=== PATIENT | female | born 1995 | race Caucasian/White ===

== ENCOUNTER → 2019-11-20 17:36 | Outpatient (CLI) | payer BC, SELFPAY ==
[2019-11-20 18:05] LABS: Basophils # 0.1 K/mm3 (0-0.2); Basophils % 0.7 % (0.1-2.0); Eosinophils # 0.3 K/mm3 (0.0-0.4); Eosinophils % 3.2 % (0.1-12.0); Hematocrit 43.7 % (37.0-47.0); Hemoglobin 13.9 g/dL (12.2-16.2); Lymphocytes % 32.4 % (10-50); Mean Corpuscular HGB Conc 31.7 g/dL (31.8-35.4); Mean Corpuscular Volume 85.1 fl (81-99); Mean Platelet Volume 8.1 fl (7.4-10.4); Monocytes # 0.3 K/mm3 (0.1-1.0); Monocytes % 3.6 % (1.7-9.3); Neutrophils # 5.6 K/mm3 (1.8-7.8); Neutrophils % 60.1 % (37.0-80.0); Platelet Count 287 K/mm3 (142-424); Red Blood Count 5.13 M/mm3 (4.20-5.40); Red Cell Distribution Width 13.1 % (11.5-17.5); White Blood Count 9.3 K/mm3 (4.8-10.8)
[2019-11-20 18:24] LABS: Alanine Aminotransferase 8 U/L (12-78); Albumin Level 4.7 g/dl (3.5-5.0); Albumin/Globulin Ratio 1.6 (1.1-1.8); Alkaline Phosphatase 111 U/L (38-126); Anion Gap 13.2 mEq/L (5-15); Aspartate Amino Transferase 26 U/L (14-36); Bilirubin,Total 0.6 mg/dl (0.2-1.3); Blood Urea Nitrogen 12 mg/dl (7-17); Calcium 10.2 mg/dl (8.4-10.2); Carbon Dioxide 26 mmol/L (22.0-30.0); Chloride 106 mmol/L (98-107); Chol/HDL Ratio 5.5 (1-3.5); Cholesterol 204 mg/dl (140-200); Estimated Glomerular Filt Rate 68 ml/min (>60); GFR (African American) 82 ML/MIN (>60); Glucose 97 mg/dl (74-100); HDL Cholesterol 37 mg/dl (40-60); Potassium 4.2 mmoL/L (3.5-5.1); Sodium 141 mmol/L (136-145); Total Protein,Serum 7.7 g/dl (6.3-8.2); Triglycerides 327 mg/dl (30-150); VLDL Cholesterol 65 mg/dL (0-40)
[2019-11-20 18:36] LABS: Direct LDL Cholesterol 131.88 mg/dL (100-129)
[2019-11-20 18:41] LABS: 25-OH Vitamin D, Total 32.5 ng/mL (30-100)
[2019-11-20 18:42] LABS: T4 (Thyroxine) 7.3 ug/dl (5.53-11.0)
[2019-11-20 18:55] LABS: Thyroid Stimulating Hormone 1.57 uIU/mL (0.465-4.68)
== END ==
PROVIDERS: Visit Provider Nurse Practitioner Family
DX: Z00.00 Encounter for general adult medical examination without abnormal findings (principal); G44.89 Other headache syndrome
CPT/HCPCS: 80053; 80061; 82306; 84436; 84443; 85025

== ENCOUNTER → 2019-11-26 13:22 | Outpatient (CLI) | payer BC, SELFPAY ==
[2019-11-26 17:14] LABS: Hemoglobin A1C 5.1 % (4.0-6.0)
== END ==
PROVIDERS: Visit Provider Nurse Practitioner Family
DX: E78.2 Mixed hyperlipidemia (principal)
CPT/HCPCS: 83036

== ENCOUNTER → 2019-12-10 14:06 | Outpatient (CLI) | payer BC, SELFPAY ==
[2019-12-10 15:10] VITALS: PULSE 83; PULSE 88
--- NOTE | 2019-12-10 15:39 | MR_ITS ---
PROCEDURE: MR HEAD/BRAIN WO CON CLINICAL INDICATION: new onset of headaches HEADACHE AND IRRITABILITY. NO PRIOR. COMPARISON: No exams were available for comparison TECHNIQUE: Routine multiplanar multi echo sequences are performed without gadolinium enhancement. FINDINGS: No midline shift, mass effect, intracranial hemorrhage, or hydrocephalus. No evidence of acute infarction. The cerebellopontine angles, cerebellum and brainstem have an unremarkable appearance. The pituitary, optic chiasm, corpus callosum, and craniocervical junction have an unremarkable appearance. No mastoid effusion or sinus air-fluid level. IMPRESSION: Negative MRI of the brain without contrast. No acute intracranial findings. Dictated by: Jordon Howard MD 12/11/2019 10:17 Jordon Howard MD in [place] 12/11/2019 10:17
== END ==
PROVIDERS: PCP Emergency Medicine; Visit Provider Specialist
DX: R06.02 Shortness of breath (principal); R51.9 Headache, unspecified; Z87.09 Personal history of other diseases of the respiratory system
CPT/HCPCS: 70551; 94060; 94640; 94726; 94729

== ENCOUNTER → 2020-03-18 14:23 | Outpatient (CLI) | payer BC, SELFPAY ==
[2020-03-18 14:43] LABS: Basophils # 0.1 K/mm3 (0-0.2); Basophils % 0.7 % (0.1-2.0); Eosinophils # 0.4 K/mm3 (0.0-0.4); Eosinophils % 4.7 % (0.1-12.0); Hematocrit 43.5 % (37.0-47.0); Hemoglobin 13.7 g/dL (12.2-16.2); Lymphocytes # 3.3 K/mm3 (0.7-4.5); Lymphocytes % 36.1 % (10-50); Mean Corpuscular HGB Conc 31.6 g/dL (31.8-35.4); Mean Corpuscular Hemoglobin 27.3 pg (27.0-31.2); Mean Corpuscular Volume 86.4 fl (81-99); Mean Platelet Volume 8.1 fl (7.4-10.4); Monocytes # 0.3 K/mm3 (0.1-1.0); Monocytes % 3.6 % (1.7-9.3); Neutrophils % 54.9 % (37.0-80.0); Platelet Count 260 K/mm3 (142-424); Red Blood Count 5.03 M/mm3 (4.20-5.40); Red Cell Distribution Width 12.8 % (11.5-17.5); White Blood Count 9.1 K/mm3 (4.8-10.8)
[2020-03-18 14:49] LABS: Chloride 108 mmol/L (98-107); Sodium 140 mmol/L (136-145)
[2020-03-18 14:50] LABS: Potassium 4.4 mmoL/L (3.5-5.1)
[2020-03-18 14:52] LABS: Alanine Aminotransferase 6 U/L (12-78); Albumin Level 4.1 g/dl (3.5-5.0); Albumin/Globulin Ratio 1.4 (1.1-1.8); Alkaline Phosphatase 88 U/L (38-126); Anion Gap 10.4 mEq/L (5-15); Aspartate Amino Transferase 20 U/L (14-36); Bilirubin,Total 0.5 mg/dl (0.2-1.3); Blood Urea Nitrogen 8 mg/dl (7-17); Carbon Dioxide 26 mmol/L (22.0-30.0); Cholesterol 167 mg/dl (140-200); Estimated Glomerular Filt Rate 102 ml/min (>60); GFR (African American) 123 ML/MIN (>60); Globulin 2.9 g/dL (1.3-3.2); Triglycerides 137 mg/dl (30-150); VLDL Cholesterol 27 mg/dL (0-40)
[2020-03-18 14:53] LABS: Calcium 9.4 mg/dl (8.4-10.2); Glucose 98 mg/dl (74-100); HDL Cholesterol 42 mg/dl (40-60)
[2020-03-18 15:04] LABS: Direct LDL Cholesterol 104.31 mg/dL (100-129)
[2020-03-18 15:10] LABS: T4 (Thyroxine) 7.4 ug/dl (5.53-11.0)
[2020-03-18 15:11] LABS: 25-OH Vitamin D, Total 21.9 ng/mL (30-100)
[2020-03-18 15:24] LABS: Thyroid Stimulating Hormone 2.21 uIU/mL (0.465-4.68)
== END ==
PROVIDERS: Visit Provider Nurse Practitioner Family
DX: E78.00 Pure hypercholesterolemia, unspecified (principal); R53.83 Other fatigue; E55.9 Vitamin D deficiency, unspecified
CPT/HCPCS: 80053; 80061; 82306; 84436; 84443; 85025

== ENCOUNTER → 2020-09-24 09:28 | Outpatient (CLI) | payer BC, SELFPAY ==
[2020-09-24 10:27] LABS: Basophils # 0.1 K/mm3 (0-0.2); Basophils % 1.1 % (0.1-2.0); Eosinophils # 0.3 K/mm3 (0.0-0.4); Eosinophils % 3.3 % (0.1-12.0); Hematocrit 41.9 % (37.0-47.0); Hemoglobin 14.3 g/dL (12.2-16.2); Lymphocytes # 3.1 K/mm3 (0.7-4.5); Lymphocytes % 34.6 % (10-50); Mean Corpuscular HGB Conc 34.1 g/dL (31.8-35.4); Mean Corpuscular Hemoglobin 28.7 pg (27.0-31.2); Mean Corpuscular Volume 84.2 fl (81-99); Mean Platelet Volume 7.5 fl (7.4-10.4); Monocytes # 0.4 K/mm3 (0.1-1.0); Monocytes % 4.1 % (1.7-9.3); Neutrophils # 5.1 K/mm3 (1.8-7.8); Neutrophils % 56.9 % (37.0-80.0); Platelet Count 254 K/mm3 (142-424); Red Blood Count 4.98 M/mm3 (4.20-5.40); Red Cell Distribution Width 13.2 % (11.5-17.5)
[2020-09-24 11:51] LABS: Alanine Aminotransferase 7 U/L (12-78); Albumin Level 4.4 g/dl (3.5-5.0); Albumin/Globulin Ratio 1.5 (1.1-1.8); Alkaline Phosphatase 81 U/L (38-126); Aspartate Amino Transferase 21 U/L (14-36); Bilirubin,Total 0.5 mg/dl (0.2-1.3); Blood Urea Nitrogen 10 mg/dl (7-17); Calcium 8.9 mg/dl (8.4-10.2); Carbon Dioxide 24 mmol/L (22.0-30.0); Chloride 105 mmol/L (98-107); Chol/HDL Ratio 5.8 (1-3.5); Cholesterol 187 mg/dl (140-200); Estimated Glomerular Filt Rate 101 ml/min (>60); GFR (African American) 122 ML/MIN (>60); Glucose 78 mg/dl (74-100); HDL Cholesterol 32 mg/dl (40-60); Sodium 139 mmol/L (136-145); Total Protein,Serum 7.4 g/dl (6.3-8.2); Triglycerides 249 mg/dl (30-150); VLDL Cholesterol 50 mg/dL (0-40)
[2020-09-24 12:07] LABS: 25-OH Vitamin D, Total 54.4 ng/mL (30-100)
[2020-09-24 12:09] LABS: T4 (Thyroxine) 7.6 ug/dl (5.53-11.0)
== END ==
PROVIDERS: Visit Provider Nurse Practitioner Family
DX: F32.9 Major depressive disorder, single episode, unspecified (principal); E55.9 Vitamin D deficiency, unspecified; E66.9 Obesity, unspecified; Z68.25 Body mass index [BMI] 25.0-25.9, adult; Z79.899 Other long term (current) drug therapy
CPT/HCPCS: 36415; 80053; 80061; 82306; 84436; 84443; 85025

== ENCOUNTER 2020-10-27 19:04 | Emergency (ER) | payer BC, SELFPAY ==
[2020-10-27 20:02] VITALS: PULSE 101; RESP 18; TEMP 37.2; O2SAT 100; BMI 26.5
[2020-10-27 20:41] VITALS: BP 0/0; PULSE 101; RESP 18; TEMP 37.2
--- NOTE | 2020-10-27 21:01 | HMH.EDUTC ---
[facility] [place] Clinical Impression: Strep throat Disposition: Home, Self-Care Condition on Discharge: Good Instructions: DI for Strep Throat, Strep Throat, Amoxicillin Additional Instructions: *Monitor Temp, Over the counter Motrin or Tylenol as directed/as needed Tylenol every 4 hours and Motrin every 6 hours (as long as your family doctor has told you that you can take it) for fever or pain. and straight to ER if unable to lower temp less than 101.0 after medication given *Warm salt water gargles may help to soothe the throat *Throat Lozenges *Warm fluids like tea with honey may help to soothe the throat *Sleep elevated *Humidifier/Vaporizer *If you did not take Penicillin shot or was unable to, start taking antibiotic immediately and make sure that you take it for the FULL length of time although you should start to feel better in 24-48 hours *change toothbrush and toothpaste 24-48 hours after starting to take antibiotics so you do not reinfect yourself Monitor Temp. Tylenol and/or Ibuprofen as needed. ER if fever is no less than 101 despite alternating Tylenol and Ibuprofen * Encourage fluids, water, Gatorade, powerade, pedialyte if /toddler/or child *Cold fluids, popsicles and ice cream may feel good on his throat Follow up IMMEDIATELY for new or worsening symptoms or no Noticeable improvement over the next 48-72 hours. 911 for difficulty breathing or swallowing You were tested for today for COVID19 your test result should be back in the next 24-48 hours You were tested for today for COVID19 your test result should be back in the next 24-48 hours, You was given a handout with how to log onto [facility] portal to get your results if you have issues logging on or no internet access you may call the [facility] for your results You was given a handout with instructions for Self Quarantine and Self isolation for while you wait on test results and what to do if they are positive If you are positive the Health Dept will be contacting you also Prescriptions: Amoxicillin [Amoxicillin 500mg Cap] 500 mg PO TID #30 cap Transmission Status: Pending to [facility]/pharmacy #[id number] Referrals: Scarlet Vazquez APRN [Primary Care Provider] - As needed Time of Disposition: 21:05 Medical Decision Making - [place] Inquiry Pt receiving controlled substance: No [place] was queried for this patient: No Vital Signs: 10/27/20 20:02 10/27/20 20:41 Temperature 98.9 F 98.9 F Temperature Source Oral Pulse Rate 101 H Pulse Rate [Left] 101 H Respiratory Rate 18 18 Blood Pressure 0/0 L 02 Sat by Pulse Oximetry 100 - Lab Data Lab results reviewed: Yes: I reviewed the patient's lab results. Orders (Tests/Meds): ORDERS Category Date Time Status Covid-19 Nasal PCR ([facility]) Routine Lab 10/27/20 20:08 Ordered [facility] [place] - General Stated complaint: COVID TEST Time Seen by Provider: 10/27/20 21:01 Mode of Arrival: Ambulatory Source of Information: Patient Limitations: No Limitations Description of Symptoms (Recalled from Triage Doc. by RN): PT C/O SORE THROAT AND STUFFY NOSE. HEENT Symptoms (Recalled from RN notes): Yes (SORE THROAT AND NASAL DRAINAGE) Resp Symptoms (Recalled from RN notes): No Skin Symptoms (Recalled from RN notes): No MS Symptoms (Recalled from RN notes): No Functional Status (Recalled from RN notes): NA - History of Present Illness Provider Complaint: Patient states that she was at a wedding this weekend and several people that was there has since tested postive for COVID states that she started having sore throat and stuffy nose and feels like her throat is swollen so she wanted to get tested for COVID - Related Data Previous Rx's Medication Instructions Recorded ergocalciferol (vitamin D2) 1,250 See Rx Instructions .ROUTE 07/28/20 mcg (50,000 unit) capsule .COMPLEX #4 cap nicotine 21 mg/24 hr daily See Rx Instructions .ROUTE 09/23/20 transdermal patch .COMPLEX #28 patch rizatriptan 10 mg tabl
[2020-10-27 21:54] LABS: UTC Strep Screen (Rapid) Positive (Negative)
--- NOTE | 2020-10-28 09:01 | PC.NURSE ---
relayed positive covid result
== END 2020-10-27 21:15 | disposition home or self-care (01) ==
PROVIDERS: Emergency Provider Nurse Practitioner; PCP Nurse Practitioner Family
DX: J02.0 Streptococcal pharyngitis (principal)
CPT/HCPCS: 87880; 99203; C9803; G0463; U0003; U0005